=== PATIENT | male | born 1990 | race Caucasian/White ===

== ENCOUNTER 2018-07-10 20:16 | Inpatient (IN) | payer OTHER ==
[~2018-07-10] VITALS: Ht 175.3 cm; Wt 110.2 kg
[2018-07-10 20:57] LABS: BASOPHILS # (AUTO) 0.01 x10^3/uL (0-0.1); BASOPHILS % (AUTO) 0 % (0-1); EOSINOPHILS # (AUTO) 0.04 x10^3/uL (0-0.4); EOSINOPHILS % (AUTO) 1 % (1-7); LYMPHOCYTES % (AUTO) 38 % (22-44); MD NO; MEAN CORPUSCULAR HEMOGLOBIN 23.8 pg (27.5-34.5); MEAN CORPUSCULAR HGB CONC 32.4 g/dL (33.2-36.2); MEAN CORPUSCULAR VOLUME 73.5 fL (81-97); MEAN PLATELET VOLUME 8.2 fL (7.4-10.4); MONOCYTES # (AUTO) 0.36 x10^3/uL (0.2-0.8); MONOCYTES % (AUTO) 9 % (2-9); NEUTROPHILS # (AUTO) 2.02 x10^3/uL (1.8-6.8); NEUTROPHILS % (AUTO) 52 % (42-75); PLATELET COUNT 250 x10^3/uL (130-400); RED BLOOD COUNT 5.55 x10^6/uL (4.38-5.82); RED CELL DISTRIBUTION WIDTH 18.5 % (9.4-14.8)
[2018-07-10] MEDS ORDERED: OMEP-110 PO (21:04)
[2018-07-10 21:06] LABS: PROTHROMBIN TIME 10.5 Seconds (9.6-11.5)
[2018-07-10 21:09] LABS: ALBUMIN 3.2 g/dL (3.4-5.0); ANION GAP 6 mmol/L (5-15); CALCIUM 7.8 mg/dL (8.5-10.1); CHLORIDE 104 mmol/L (98-107)
[2018-07-10 21:13] LABS: ALANINE AMINOTRANSFERASE 30 U/L (12-78); ALKALINE PHOSPHATASE 59 U/L (45-117); BILIRUBIN,TOTAL 1.1 mg/dL (0.2-1.0); CREATININE 0.98 mg/dL (0.7-1.3); TOTAL PROTEIN 6.9 g/dL (6.4-8.2)
[2018-07-10] MEDS ORDERED: PANTOPRAZOLE 80 MG in SODIUM CHLORIDE 0.9% 100 ML IV SCH (21:30)
[2018-07-10] MEDS ORDERED: PANTOPRAZOLE 80 MG in SODIUM CHLORIDE 0.9% 50 ML IV ONE (21:30)
--- NOTE | 2018-07-10 22:40 | NUR ---
[employer]ON[employer] GTT STARTED BY ASSIST RN. REPORTED TO SAURABH COBB ON MEDICAL FLOOR. PT UNDERSTANDS POC.
[2018-07-10] MEDS ORDERED: POTASSIUM CHLORIDE 40 MEQ in SODIUM CHLORIDE 0.9% 500 ML IV ONE (23:00)
[2018-07-10] MEDS ORDERED: ONDANSETRON 2MG/ML, 2ML IVPush PRN (23:00)
[2018-07-10] MEDS: PANTOPRAZOLE 80 MG in SODIUM CHLORIDE 0.9% 100 ML IV SCH (23:00)
[2018-07-10] MEDS ORDERED: ENALAPRILAT 1.25 MG/ML, 2ML IVPush PRN (23:00)
[2018-07-10] MEDS ORDERED: HYDROmorphone 2 MG/ML, 1ML IVPush PRN (23:00)
[2018-07-10] MEDS ORDERED: ACETAMINOPHEN 325 MG TABLET PO PRN (23:00)
[2018-07-11] VITALS: BP 118/59
[2018-07-11] MEDS: LACTATED RINGERS 1,000 ML IV SCH ×3 (00:49→19:38)
[2018-07-11 01:14] VITALS: BP 109/68
[2018-07-11 01:59] LABS: CLOSTRIDIUM DIFFICILE ANTIGEN NEGATIVE; CLOSTRIDIUM DIFFICILE TOXIN NEGATIVE (Negative)
[2018-07-11 04:59] LABS: ALANINE AMINOTRANSFERASE 26 U/L (12-78); ALBUMIN 3.1 g/dL (3.4-5.0); CHLORIDE 108 mmol/L (98-107); CREATININE 0.98 mg/dL (0.7-1.3)
[2018-07-11 05:02] LABS: ALKALINE PHOSPHATASE 54 U/L (45-117); ANION GAP 6 mmol/L (5-15); BILIRUBIN,TOTAL 0.8 mg/dL (0.2-1.0); CALCIUM 7.6 mg/dL (8.5-10.1); TOTAL PROTEIN 6.1 g/dL (6.4-8.2)
[2018-07-11] MEDS: PANTOPRAZOLE 80 MG in SODIUM CHLORIDE 0.9% 100 ML IV SCH ×2 (07:45→19:37)
[2018-07-11 08:02] VITALS: BP 121/70
[2018-07-11 13:35] VITALS: BP 129/82
[2018-07-11 20:05] VITALS: BP 130/71
[2018-07-12] MEDS: LACTATED RINGERS 1,000 ML IV SCH ×4 (01:10→23:45)
[2018-07-12 04:13] VITALS: BP 116/66
[2018-07-12] MEDS: PANTOPRAZOLE 80 MG in SODIUM CHLORIDE 0.9% 100 ML IV SCH (05:16)
[2018-07-12 07:11] VITALS: BP 118/68
[2018-07-12] MEDS: IRON SUCROSE COMPLEX 100MG/5ML IV SCH (09:05)
[2018-07-12 12:22] VITALS: BP 98/63
[2018-07-12] MEDS ORDERED: PROPOFOL 50 ML ONE (13:07)
[2018-07-12] MEDS ORDERED: MIDAZOLAM 1 MG/ML, 2ML ONE (13:53)
[2018-07-12] MEDS ORDERED: FENTANYL PF 100 MCG/2ML ONE (13:53)
[2018-07-12] MEDS ORDERED: MORPHINE SULFATE 4 MG/ML, 1ML IVPush PRN (14:00)
[2018-07-12] MEDS ORDERED: OXYcodone 5 MG/5 ML ORAL.SOL UDC PO PRN (14:00)
[2018-07-12] MEDS ORDERED: MEPERIDINE/PF 25MG/0.5ML IVPush PRN (14:00)
[2018-07-12] MEDS ORDERED: ONDANSETRON ODT 8 MG PO PRN (14:00)
[2018-07-12] MEDS ORDERED: DIPHENHYDRAMINE 50 MG/ML, 1ML IVPush PRN (14:00)
[2018-07-12] MEDS ORDERED: ONDANSETRON 2MG/ML, 2ML IV PRN (14:00)
[2018-07-12] MEDS ORDERED: FENTANYL PF 100 MCG/2ML IV PRN (14:00)
[2018-07-12] MEDS ORDERED: DIAZEPAM 5 MG/ML, 2ML IVPush PRN (14:00)
[2018-07-12] MEDS: SUCRALFATE 1 GM/10 ML UDC PO SCH ×2 (14:46→17:11)
[2018-07-12 19:31] VITALS: BP 118/61
[2018-07-12] MEDS: AMOXICILLIN 500 MG CAPSULE PO SCH (20:02)
[2018-07-12] MEDS: CLARITHROMYCIN 500 MG TABLET PO SCH (20:02)
[2018-07-12] MEDS: OMEPRAZOLE 20 MG CAPSULE.DR PO SCH (20:02)
[2018-07-13 00:18] VITALS: BP 102/62
[2018-07-13 04:07] VITALS: BP 115/63
[2018-07-13] MEDS: LACTATED RINGERS 1,000 ML IV SCH ×2 (05:45→11:40)
[2018-07-13 07:17] VITALS: BP 121/70
[2018-07-13] MEDS: SUCRALFATE 1 GM/10 ML UDC PO SCH ×2 (08:27→11:36)
[2018-07-13] MEDS: AMOXICILLIN 500 MG CAPSULE PO SCH (08:27)
[2018-07-13] MEDS: IRON SUCROSE COMPLEX 100MG/5ML IV SCH (08:28)
[2018-07-13] MEDS: OMEPRAZOLE 20 MG CAPSULE.DR PO SCH (08:28)
[2018-07-13] MEDS: CLARITHROMYCIN 500 MG TABLET PO SCH (08:28)
[2018-07-13] MEDS ORDERED: FERR324T5 PO (08:44)
[2018-07-13] MEDS ORDERED: AMOX-291 PO (08:44)
[2018-07-13] MEDS ORDERED: CLAR500T PO (08:44)
[2018-07-13] MEDS ORDERED: OMEP-110 PO (08:44)
== END 2018-07-13 12:33 | disposition home or self-care (01) | DRG 369 ==
LOC: ED 20:57 → EDIP 21:26 → 4NOR 07-11 00:04 → DCLOUNGE 07-13 12:23
PROVIDERS: ADMIT Family Medicine; ATTEND Family Medicine
PROC: 0DB68ZX Excision of Stomach, Via Natural or Artificial Opening Endoscopic, Diagnostic (ICD-10-PCS; 2018-07-12)
PROC: 0DB98ZX Excision of Duodenum, Via Natural or Artificial Opening Endoscopic, Diagnostic (ICD-10-PCS; principal; 2018-07-12 13:30)
DX: K22.6 Gastro-esophageal laceration-hemorrhage syndrome (principal); D62 Acute posthemorrhagic anemia; B96.81 Helicobacter pylori [H. pylori] as the cause of diseases classified elsewhere; K21.9 Gastro-esophageal reflux disease without esophagitis; E87.6 Hypokalemia; K76.0 Fatty (change of) liver, not elsewhere classified; D50.9 Iron deficiency anemia, unspecified; K44.9 Diaphragmatic hernia without obstruction or gangrene; E66.9 Obesity, unspecified; F12.90 Cannabis use, unspecified, uncomplicated; K29.70 Gastritis, unspecified, without bleeding; Z77.011 Contact with and (suspected) exposure to lead
CPT/HCPCS: 36415; 76700; 80053; 82728; 83540; 83550; 83690; 83735; 84100; 84466; 85014; 85018; 85025; 85610; 86677; 86900; 87324; 88305; 88342; 96374; G0378; J1756; J2250; J2704; J3010; J3480; C9113; J7040; J7120

== ENCOUNTER 2019-01-05 23:41 | Emergency (ER) | payer OTHER ==
[~2019-01-05] VITALS: Ht 177.8 cm; Wt 110.0 kg
[~2019-01-05 23:41] MED LIST: AMOX-291 PO; CLAR-36 PO; FERR324T5 PO; OMEP-110 PO
[2019-01-05 23:44] VITALS: BP 139/72
--- NOTE | 2019-01-06 00:16 | NUR ---
PT IN IMAGING
[2019-01-06] MEDS ORDERED: KETOROLAC 30 MG/1 ML IM ONE (00:30)
[2019-01-06] MEDS ORDERED: KETOROLAC 60 MG/2 ML ONE (00:40)
--- NOTE | 2019-01-06 00:59 | NUR ---
PT GIVEN INCENTIVE SPIROMETER AND INSTRUCTED ON USE. PT ABLE TO DEMONSTRATE CORRECT USE OF IS.
== END 2019-01-06 02:02 | disposition home or self-care (01) ==
LOC: ED 01-06 00:39
DX: S20.212A Contusion of left front wall of thorax, initial encounter (principal); S20.211A Contusion of right front wall of thorax, initial encounter; W18.39XA Other fall on same level, initial encounter; Y93.89 Activity, other specified; Y92.69 Other specified industrial and construction area as the place of occurrence of the external cause; Y99.8 Other external cause status
CPT/HCPCS: 71101; 96372; 99283; J1885